=== PATIENT | female | born 1955 | race Caucasian/White ===

== ENCOUNTER 2021-03-27 11:43 | Outpatient (CLI) | payer BC, SELFPAY ==
--- NOTE | 2021-03-27 11:59 | XRR_ITS ---
Lung PROCEDURE INFORMATION: Exam: XR Left Foot Exam date and time: 03/27/2021 11:59 AM Age: 65 years old Clinical indication: Condition or disease; Arthritis; Rheumatoid; Ankle and foot; Left; Additional info: Z79.899 - other [facility] (current) drug therapy TECHNIQUE: Imaging protocol: XR Left foot. Views: 3 or more views. COMPARISON: No relevant prior studies available. FINDINGS: Bones/joints: There is a hallux valgus deformity great toe. Generalized osteoarthritis is seen with interphalangeal articulation narrowing of multiple digits. Multiple bony erosions are seen in the proximal 4th and 5th metatarsals and the medial aspect of the midfoot. These findings correspond to rheumatoid arthritis. Soft tissues: Normal. XR/XR foot LT min 3V* [id number] IMPRESSION: 1. No acute findings. 2. Severe osteoarthritis. 3. Evidence of rheumatoid arthritis 4. Hallux valgus deformity great toe
--- NOTE | 2021-03-27 11:59 | XRR_ITS ---
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 Views: 3 or more views. COMPARISON: No relevant prior studies available. FINDINGS: Bones/joints: Multiple periarticular bony erosions seen in the 2nd 3rd and 5th digits. These findings correspond to rheumatoid arthritis. Interphalangeal articulation narrowing is seen corresponding to osteoarthritis. Soft tissues: Periarticular soft tissue edema is seen in the 1st 2nd 3rd and 5th digits. XR/XR hand LT min 3V* [id number] IMPRESSION: 1. No acute findings. 2. Radiographic evidence of rheumatoid arthritis as described.
--- NOTE | 2021-03-27 11:59 | XRR_ITS ---
PROCEDURE INFORMATION: Exam: XR Right Hand Exam date and time: 03/27/2021 11:59 AM Age: 65 years old Clinical indication: Condition or disease; Arthritis; Rheumatoid; Hand; Bilateral; Additional info: Z79.899 - other correction (current) drug therapy TECHNIQUE: Imaging protocol: XR Right hand. Views: 3 or more views. COMPARISON: No relevant prior studies available. FINDINGS: Bones/joints: There is evidence of osteoarthritis seen. Bony erosions are present in the 2nd and 4th digits and the proximal aspect of the proximal phalange of the 2nd digit. These findings are consistent with rheumatoid arthritis. Soft tissues: Periarticular soft tissue edema is seen involving multiple digits. These findings are associated with rheumatoid arthritis. XR/XR hand RT min 3V* [id number] IMPRESSION: No acute findings. Chronic bone and soft tissue changes consistent with rheumatoid arthritis
--- NOTE | 2021-03-27 11:59 | XRR_ITS ---
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 Views: 1 or 2 views. COMPARISON: CR XR hand LT min 3V* [id number] 03/27/2021 12:24 PM FINDINGS: Bones/joints: Normal. Soft tissues: Normal. XR/XR elbow LT 2V [id number] IMPRESSION: No acute findings.
--- NOTE | 2021-03-27 11:59 | XRR_ITS ---
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 Views: 3 or more views. COMPARISON: No relevant prior studies available. FINDINGS: Bones/joints: There is a hallux valgus deformity present in the great toe. Narrowing of the interphalangeal articulations are seen in multiple digits consistent with osteoarthritis. A bony erosion is present is in the distal medial aspect of the proximal phalange of the 1st digit. This finding is suspicious for rheumatoid arthritis There is subchondral cyst seen in the midfoot near the proximal 4th metatarsal. Bony erosions seen in the proximal phalange of the 2nd toe Soft tissues: Periarticular soft tissue edema is seen in the great toe. XR/XR foot RT min 3V* [id number] IMPRESSION: 1. No acute findings. 2. Possible rheumatoid arthritis great toe 3. Osteoarthritis 4. Hallux valgus deformity great toe
[2021-03-27 13:13] LABS: Basophils % 0.5 %; Eosinophils # 0.1 10^3/uL (0.0-0.8); Eosinophils % 1.9 %; Hematocrit 37.5 % (37.0-47.0); Hemoglobin 12.2 g/dL (11.5-15.3); Lymphocytes # 1.9 10^3/uL (0.8-4.8); Lymphocytes % 29.4 %; Mean Corpuscular HGB Conc 32.5 g/dL (30.0-36.0); Mean Corpuscular Hemoglobin 30.6 pg (28.0-34.0); Mean Platelet Volume 10.5 fL (7.4-10.4); Monocytes # 0.4 10^3/uL (0.2-0.9); Monocytes % 5.8 %; Neutrophils % 61.6 %; Nucleated Red Blood Cells % 0 %; Platelet Count 212 10^3/cmm (130-400); Red Blood Count 3.99 10^6/uL (4.1-5.3); White Blood Count 6.3 10^3/uL (4.0-10.0)
[2021-03-27 13:29] LABS: Erythrocyte Sedimentation Rate 26 mm/hr (0-15)
[2021-03-27 14:15] LABS: Alanine Aminotransferase 50 U/L (0-33); Albumin Level 4.5 g/dL (3.5-5.2); Alkaline Phosphatase 339 IU/L (35-105); Aspartate Amino Transferase 34 U/L (0-32); C Reactive Protein 5.4 mg/L (0.0-4.9); Globulin 2.8 g/dL (1.3-4.6); Total Bilirubin 0.2 mg/dL (0.15-1.2); Total Protein 7.3 g/dL (6.6-8.7); Uric Acid 11.7 mg/dL (2.4-5.7)
[2021-03-27 14:34] LABS: Hepatitis B Core AB, Total Non-Reactive (Nonreactive); Hepatitis B Surface Antigen Non-Reactive (Nonreactive)
[2021-03-27 16:22] LABS: 25 Hydroxy Vitamin D 15 ng/mL (30-100)
[2021-03-28 14:28] LABS: Cyclic Citrullinated Peptide <16 UNITS
[2021-03-28 14:32] LABS: Anti-Nuclear Antibody Screen NEGATIVE (NEGATIVE)
[2021-03-29 15:37] LABS: Quantiferon Mitogen >10.00 IU/mL; Quantiferon Nil 0.01 IU/mL; Quantiferon Plus TB1 0.01 IU/mL; Quantiferon TB Gold NEGATIVE (NEGATIVE)
== END 2021-03-27 11:44 | disposition home or self-care (01) ==
LOC: RAD 11:57
PROVIDERS: Visit Provider Internal Medicine Rheumatology
DX: M10.9 Gout, unspecified (principal); M19.90 Unspecified osteoarthritis, unspecified site; Z79.899 Other long term (current) drug therapy; Z11.59 Encounter for screening for other viral diseases; Z11.1 Encounter for screening for respiratory tuberculosis; M19.072 Primary osteoarthritis, left ankle and foot; M19.071 Primary osteoarthritis, right ankle and foot; M20.12 Hallux valgus (acquired), left foot; M20.11 Hallux valgus (acquired), right foot
CPT/HCPCS: 73070; 73130; 73630; 80076; 82306; 82565; 84550; 85025; 85651; 86038; 86140; 86200; 86480; 86704; 87340